=== PATIENT | female | born 1960 | race Caucasian/White ===

== ENCOUNTER → 2016-05-06 | Outpatient (CLI) | payer BC | END | disposition home or self-care (01) | LOC: GMA 13:14 | PROVIDERS: ATTEND Nurse Practitioner Acute Care | DX: N39.0 Urinary tract infection, site not specified (principal); L43.9 Lichen planus, unspecified ==

== ENCOUNTER → 2016-10-06 | Outpatient (CLI) | payer BC ==
--- NOTE | 2016-10-06 15:54 | MRI ---
MRI right knee without contrast INDICATION: Knee pain swelling no specific injury chronic symptoms TECHNIQUE: Noncontrast MR imaging right knee standard protocol FINDINGS: Cruciate ligaments are intact. Extensor tendons are intact. Moderate Hill's cyst measuring up to 5.4 cm craniocaudal. Fairly large joint effusion. The collateral ligaments are intact. There is degenerative fraying and mild free edge truncation body medial meniscus indicating mild degenerative tear. There is horizontal cleavage and mild free edge fraying in the lateral meniscus as well. Subchondral edema is noted in the lateral tibial plateau related to subchondral stress reaction or contusion less likely. A tiny focus of subchondral low signal in the lateral plateau related to mild subchondral depression or very small subchondral stress or insufficiency fracture. Mild degenerative change proximal tib-fib joint with mild cystic change in the fibular head. There is synovitis/debris in the posterior lateral recesses adjacent to the posterior lateral femoral condyle axial series 301 image #20. Multifocal grade 4 chondrosis in the medial and lateral patellar facets with subchondral edema and cystic change and mild lateral patellar tracking. Similar changes in the inferior medial trochlea. Multifocal up to grade 4 chondral fissuring in the medial femoral condyle as well especially along the intercondylar aspect. IMPRESSION: Degenerative meniscal tears see above discussion with mild volume loss Tricompartmental chondrosis up to grade 4 most severe in the patellofemoral joint and medial femoral condyle Subchondral edema lateral tibial plateau related to overlying chondrosis/subchondral stress reaction No stabilizing ligament disruption. Large joint effusion and Hill's cyst Electronically signed by: Jw Murphy MD 10/06/2016 3:52 PM CDT
== END | disposition home or self-care (01) ==
LOC: MRI 12:46
PROVIDERS: ATTEND Nurse Practitioner Acute Care
DX: M25.461 Effusion, right knee (principal); S83.241A Other tear of medial meniscus, current injury, right knee, initial encounter

== ENCOUNTER → 2016-11-16 | Outpatient (CLI) | payer BC ==
--- NOTE | 2016-11-16 11:04 | RAD ---
Frontal oblique and lateral views of the right knee. Indication: RIGHT KNEE PAIN Comparison: None. IMPRESSION: Mild narrowing medial compartment without subchondral sclerosis or cystic change. Moderate size knee effusion. No acute fracture or malalignment. Electronically signed by: Israel Newell MD 11/16/2016 11:02 AM CDT
--- NOTE | 2016-11-16 11:09 | RAD ---
Frontal view pelvis. Indication: RIGHT HIP PAIN Comparison: None. IMPRESSION: No acute fracture of the pelvis or hips. Minimal bilateral hip joint space narrowing. Mild pubic symphysis osteoarthritis. Enthesophyte formation bilateral greater trochanters. Electronically signed by: Israel Newell MD 11/16/2016 11:07 AM CDT
== END | disposition home or self-care (01) ==
LOC: RAD 08:14
PROVIDERS: ATTEND Orthopaedic Surgery
DX: M25.561 Pain in right knee (principal); M25.551 Pain in right hip

== ENCOUNTER → 2016-12-23 | Outpatient (CLI) | payer BC ==
--- NOTE | 2016-12-24 17:46 | CT ---
EXAM DESCRIPTION: Abdomen/Pelvis w/Contrast CLINICAL HISTORY: 56 years Female LLQ ABD TENDERNESS COMPARISON: 10/08/2015 TECHNIQUE: Contiguous axial images obtained through the abdomen and pelvis following IV contrast. Reformatted images obtained. This exam was performed according to our department optimization program which includes automated exposure control, adjustment of the mA and/or kv according to patient size and/or use of iterative reconstruction technique. FINDINGS: The liver appears unremarkable. The spleen and pancreas appear unremarkable. No adrenal masses. The kidneys appear unremarkable. No hydronephrosis. The gallbladder is absent. No aneurysmal dilatation of the aorta. No bowel obstruction. The appendix is unremarkable. Sigmoid colon is incompletely distended. Possibility of mild wall thickening is thought less likely but not excluded. No inflammatory changes are noted. Mildly prominent inguinal lymph nodes. IMPRESSION: Incomplete distention of the sigmoid colon without adjacent inflammation. Possibility of mild wall thickening or early colitis is not excluded but thought less likely No additional evidence of acute process Electronically signed by: Humaira Salcedo 12/24/2016 5:45 PM CDT
== END | disposition home or self-care (01) ==
LOC: CT 07:57
PROVIDERS: ATTEND Family Medicine
DX: R10.814 Left lower quadrant abdominal tenderness (principal)

== ENCOUNTER → 2017-04-28 | Outpatient (CLI) | payer BC | LOC: GMAJS 12:03 | PROVIDERS: ATTEND Physician Assistant | DX: N39.0 Urinary tract infection, site not specified (principal) ==

== ENCOUNTER → 2017-07-04 | Outpatient (CLI) | payer BC ==
--- NOTE | 2017-07-10 17:11 | US ---
THYROID ULTRASOUND CLINICAL INFORMATION: Thyroid nodule. TECHNIQUE: Standard transcutaneous scanning, two-dimensional and Doppler modes. COMPARISON: None. FINDINGS: Thyroid size: Right 3.7 x 2.4 x 1.4 cm. Left 3.9 x 1.7 x 1.4 cm. Isthmus 2.9 mm. Texture: Heterogeneous Estimated total number of nodules >/=1 cm: 1 Number of spongiform nodules >/=2 cm not described below (TR1): 0 Number of mixed cystic and solid nodules >/=1.5 cm not described below (TR2): 0 Nodule #: 1 Maximum size: 1.3 cm; All dimensions 0.7 x 0.6 cm Location: left; mid Composition: solid/almost completely solid (2) Echogenicity: hypoechoic (2) Shape: not [id number] (0) Margins: smooth (0) Echogenic foci: none (0) ACR TI-RADS total points: 4. ACR TI-RADS risk category: TR4 (4-6 points) ACR TI-RADS recommendation: Follow-up ultrasound in 1 year Nodule #: 2 Maximum size: 0.8 cm; All dimensions 0.6 x 0.7 cm Location: right; mid Composition: solid/almost completely solid (2) Echogenicity: hypoechoic (2) Shape: not [id number] (0) Margins: smooth (0) Echogenic foci: none (0) ACR TI-RADS total points: 4. ACR TI-RADS risk category: TR4 (4-6 points) ACR TI-RADS recommendation: No further follow-up IMPRESSION: 1. 1.3 cm hypoechoic almost solid nodule (nodule 1) in the left mid lobe with parallel orientation, smooth borders, no calcification. ACR TI RADS risk category TR 4. ACR TI RADS recommendation follow-up in one year interval. Please see below.* 2. Hypoechoic solid nodule (nodule 2) less than 1 cm in diameter in the right mid lobe with parallel orientation, smooth borders, and no calcification. ACR TI RADS risk category TR 4. ACR TI RADS recommendation no follow-up recommended. ACR TI-RADS recommendations: TR5 (>/=7 points) - FNA if >/=1 cm, follow-up if 0.5 - 0.9 cm every year for 5 years TR4 (4-6 points) - FNA if >/=1.5 cm, follow-up if 1 - 1.4 cm in 1, 2, 3 and 5 years TR3 (3 points) - FNA if >/=2.5 cm, follow -up if 1.5 - 2.4 cm in 1, 3 and 5 years TR2 (2 points) and TR1 (0 points) - No FNA or follow-up * ACR TI-RADS recommends that no more than two nodules with the highest ACR TI-RADS total point should be biopsied and no more than four nodules should be followed. Electronically signed by: Carlos Camarillo MD 07/10/2017 5:09 PM CDT
== END ==
LOC: US 13:59
PROVIDERS: ATTEND Family Medicine
DX: E04.1 Nontoxic single thyroid nodule (principal)

== ENCOUNTER → 2017-07-13 | Outpatient (CLI) | payer BC ==
--- NOTE | 2017-07-13 09:17 | RAD ---
EXAM DESCRIPTION: Pelvis CLINICAL HISTORY: 56 years Female, HIP PN COMPARISON: None. FINDINGS: Single AP view the pelvis shows no displaced hip or other pelvic fracture. Hip joints are anatomically aligned, and hip joint spaces are well-maintained. The pubic symphysis shows only mild degenerative changes. The sacroiliac joint spaces are well-maintained. There are few small calcifications in the right side of the pelvis which are likely vascular. IMPRESSION: Mild degenerative changes at the pubic symphysis, but no additional hip or other pelvic abnormality to explain patient symptoms. Electronically signed by: Sincere Cochran MD 07/13/2017 9:16 AM CDT
== END ==
LOC: RAD 08:21
PROVIDERS: ATTEND Orthopaedic Surgery
DX: M25.551 Pain in right hip (principal); M25.552 Pain in left hip

== ENCOUNTER → 2017-08-03 | Outpatient (CLI) | payer BC ==
--- NOTE | 2017-08-03 17:25 | US ---
EXAM DESCRIPTION: Abdomen,Complete CLINICAL HISTORY: ABNORMAL LIVER FUNCTION COMPARISON: None Available. TECHNIQUE: Complete abdominal ultrasound FINDINGS: Visualized portions of the pancreas are unremarkable. No peripancreatic fluid. Bowel gas obscures some areas. Normal caliber of the aorta. Normal appearance of the inferior vena cava. Liver parenchyma is homogeneous in texture with normal echogenicity. No liver mass or intrahepatic bile duct dilatation. No liver surface irregularity. Normal appearance of hepatic veins and portal vein. Gallbladder images are not included on the study. This suggests either surgically absent gallbladder or small contracted gallbladder filled with stones. Clinical correlation recommended. Common bile duct is normal in caliber measuring 6.1 mm. The right kidney measures 10.24 cm in length. Normal renal cortical echogenicity. The renal cortical thickness appears normal. No right renal mass, shadowing stone or cyst. There is no hydronephrosis. Spleen is normal in size. No focal splenic lesion. The left kidney measures 10.9 cm in length. Normal renal cortical echogenicity. The renal cortical thickness appears normal. No left renal mass, shadowing stone or cyst. There is no hydronephrosis. IMPRESSION: Nonvisualized gallbladder. See above. Otherwise unremarkable sonogram of the upper abdomen. Electronically signed by: Patricio Cortez MD 08/03/2017 5:24 PM CDT
== END ==
LOC: US 09:40
PROVIDERS: ATTEND Family Medicine
DX: R94.5 Abnormal results of liver function studies (principal)

== ENCOUNTER → 2017-12-20 | Outpatient (CLI) | payer BC | LOC: GMAJS 10:38 | PROVIDERS: ATTEND Physician Assistant | DX: R30.0 Dysuria (principal) ==

== ENCOUNTER → 2018-11-02 | Outpatient (CLI) | payer BC ==
--- NOTE | 2018-11-05 09:13 | MRI ---
Study: MRI of the Right Knee. Indication: RIGHT KNEE PAIN Technique: Multiplanar, multi sequence MRI of the right knee was obtained without intravenous contrast. Comparison: October 06, 2016. Findings: Mild mucoid degeneration ACL without acute tear. PCL intact. MCL is lax and bowed indicating sequela of a prior MCL sprain. No acute tear. Increased PD signal and thickening proximal fibular collateral ligament indicating sequela of a previous sprain. Tendinosis popliteus tendon origin present as well. IT band thickened distally with increased internal PD signal which can be seen with IT band friction. Remaining lateral collateral ligament complex structures intact. Free edge fraying posterior horn and body medial meniscus. Grade 3 chondral thinning throughout the medial compartment with mild grade 4 chondral loss, cortical remodeling, and subchondral marrow change of the posterior weightbearing margin medial femoral condyle which is progressed. Degenerative tearing and attenuation of the anterior horn/root lateral meniscus with poor definition. Body extruded by 3 mm with free edge fraying. Progressed irregular grade 4 and mild grade 3 chondrosis throughout the central to lateral weightbearing portions of the lateral compartment with patchy cortical remodeling and subchondral marrow change. Patellofemoral extensor mechanism intact. Patella normally located. Subtle grade 4 chondral loss inferior margin lateral patellar facet with cortical remodeling and subchondral cystic change. Grade 3/4 chondrosis junction medial patellar facet and apex. Moderate size knee effusion with scattered synovitis/debris. No acute fracture. Moderate-sized partially ruptured Hill's cyst. Impression: Mild mucoid degeneration ACL. Remote MCL and FCL sprains as well as popliteus tendinosis and findings which can can be seen with IT band friction. Free edge fraying posterior horn and body medial meniscus. Degenerative tearing and attenuation anterior horn/root lateral meniscus with free edge fraying and slight extrusion of the body. Tricompartmental areas of grade 3/4 chondral loss which appear progressed compared to the prior. Moderate size knee effusion. Electronically signed by: Israel Newell MD 11/05/2018 9:11 AM CDT
== END ==
LOC: MRI 13:51
PROVIDERS: ATTEND Nurse Practitioner Acute Care
DX: M17.11 Unilateral primary osteoarthritis, right knee (principal); M23.321 Other meniscus derangements, posterior horn of medial meniscus, right knee; M23.341 Other meniscus derangements, anterior horn of lateral meniscus, right knee

== ENCOUNTER → 2019-02-14 | Outpatient (CLI) | payer OTHER ==
--- NOTE | 2019-02-15 07:29 | MRI ---
EXAM DESCRIPTION: Knee,Left CLINICAL HISTORY: 58 years Female, PAIN IN LEFT KNEE COMPARISON: None. TECHNIQUE: Noncontrast multiplanar multisequence magnetic resonance imaging of the left knee. FINDINGS: Free edge degenerative tearing anterior horn lateral meniscus. Lateral meniscus is otherwise normal in thickness and morphology. Medial meniscus is normal in appearance. Anterior posterior cruciate ligaments are intact. Complex multifocal full-thickness cartilage loss with subchondral bone marrow edema cystlike formation along the patellofemoral joint consistent with grade 4 chondrosis/early osteoarthritis. Mild medial patellar translation. Quadriceps and patellar tendons are intact. Medial and lateral patellar retinacular attachments are intact. Medial collateral and fibular collateral ligaments are intact. Large knee joint effusion with synovitis. Large multilobulated leaking Hill's cyst measuring up to 7 cm cephalocaudal dimension. Usual inflammatory change associated with the Hill cyst leaking. Usual mucoid degenerative signal proximal medial lateral heads of the gastrocnemius. Nonfocal high-grade full-thickness cartilage loss is present along the anterior weightbearing surface of the medial compartment consistent with grade 4 chondrosis. Generalized thinning with areas of near full-thickness cartilage fibrillation noted along the weightbearing surface of the lateral compartment consistent with grade 3 chondrosis. No fracture or aggressive marrow infiltrating disease. IMPRESSION: Severe chondrosis/early osteoarthritis patellofemoral and medial compartments. Grade 3 chondrosis lateral compartment. Large knee joint effusion with synovitis and leaking 7 cm Hill's cyst. Free edge degenerative type tearing of the anterior horn lateral meniscus. Intact cruciate and collateral ligaments. Electronically signed by: Boo Larios MD 02/15/2019 7:27 AM [employer]
== END ==
LOC: MRI 13:52
PROVIDERS: ATTEND Nurse Practitioner Acute Care
DX: M17.12 Unilateral primary osteoarthritis, left knee (principal); M22.42 Chondromalacia patellae, left knee; M71.22 Synovial cyst of popliteal space [Baker], left knee; M23.342 Other meniscus derangements, anterior horn of lateral meniscus, left knee

== ENCOUNTER → 2019-03-08 | Outpatient (CLI) | payer BC, OTHER ==
--- NOTE | 2019-03-08 13:28 | RAD ---
EXAM DESCRIPTION: Pelvis CLINICAL HISTORY: PAIN IN LEFT HIP COMPARISON: July 13, 2017 IMPRESSION: Single AP supine view of the pelvis shows no acute fracture, focal bone destruction, or joint dislocation. Mild joint space narrowing and sclerotic changes to the superior lateral acetabulum are seen bilaterally similar to previous exam consistent with mild osteoarthritic changes. Moderate degenerative changes of the pubic symphysis are stable from previous. Electronically signed by: Sunday Wall MD 03/08/2019 1:27 PM [facility]
--- NOTE | 2019-03-10 13:27 | RAD ---
EXAM DESCRIPTION: Knee,Left 1 or 2 Views CLINICAL HISTORY: 58 years Female, PAIN IN LEFT KNEE COMPARISON: MRI left knee 02/14/2019 TECHNIQUE: 2 view radiograph of the left knee. IMPRESSION: No acute displaced fracture. No dislocation. Moderate joint space narrowing of the medial weightbearing knee compartment with mild underlying subchondral sclerosis along the medial tibial plateau. No marginal osteophytosis. The tibial plateau is intact. No joint effusion appreciated on 2 view radiograph although somewhat limited without lateral view provided. Moderate patellofemoral arthrosis. No lateral patellar tilt. Generalized subcutaneous edema. Electronically signed by: Asher Vargas MD 03/10/2019 1:25 PM [facility]
== END ==
LOC: RAD 09:17
PROVIDERS: ATTEND Orthopaedic Surgery
DX: M17.12 Unilateral primary osteoarthritis, left knee (principal); M85.38 Osteitis condensans, other site; M25.552 Pain in left hip